=== PATIENT | male | born 1985 | race Caucasian/White ===

== ENCOUNTER → 2023-06-13 15:05 | Outpatient (CLI) | payer OTHER, SELFPAY ==
[2023-06-13 15:59] LABS: Add Manual Diff / Slide Review NO; Basophils Absolute Auto 100 /uL (0-100); Basophils Percent Auto 0.9 % (0-2); Eosinophils Absolute Auto 200 /uL (0-450); Eosinophils Percent Auto 2.3 % (2-4); Hematocrit 43.4 % (41-53); Hemoglobin 14.8 g/dL (13.5-17.5); Lymphocytes Absolute Auto 1900 /uL (1100-4500); Lymphocytes Percent Auto 28.7 % (25-40); Mean Corpuscular HGB Conc 34.1 % (30-36); Mean Corpuscular Hemoglobin 29.9 PG (26-34); Mean Corpuscular Volume 87.7 fL (80-100); Monocytes Absolute Auto 600 /uL (0-900); Monocytes Percent Auto 8.3 % (3-14); Neutrophils Absolute Auto 4000 /uL (1500-7000); Neutrophils Percent Auto 59.8 % (50-75); Platelet Count 297 X10^3/uL (150-400); Red Blood Cell Count 4.95 X10^6/uL (4.5-5.9); Red Cell Distribution Width 12.7 % (11.6-14.8); White Blood Cell Count 6.7 X10^3/uL (4.5-11.0)
[2023-06-13 16:04] LABS: HEMOLYSIS < 15 (0-50)
[2023-06-13 16:10] LABS: Alanine Aminotransferase 20 IU/L (<50); Albumin 4.6 g/dL (3.5-5.0); Albumin Globulin Ratio 1.4 (1.0-2.8); Alkaline Phosphatase 55 U/L (38-126); Aspartate Aminotransferase 24 IU/L (17-59); BUN Creatinine Ratio 15.3 (6-22); Bilirubin Total 0.6 mg/dL (0.2-1.3); Blood Urea Nitrogen 15 mg/dL (9-20); Calcium 9.4 mg/dL (8.4-10.2); Carbon Dioxide 27 mmol/L (22-32); Chloride 105 mmol/L (98-107); Estimated Glomerular Filt Rate > 60 mL/min (>60); Globulin 3.4 g/dL (1.7-4.1); Glucose 99 mg/dL (70-100); Potassium 4.2 mmol/L (3.4-5.1); Sodium 140 mmol/L (137-145); Uric Acid 8.7 mg/dL (3.5-8.5)
[2023-06-13 16:40] LABS: Thyroid Stimulating Hormone 0.875 uIU/mL (0.47-4.68)
[2023-06-13 16:56] LABS: Erythrocyte Sedimentation Rate 6 MM/HR (0-15)
[2023-06-13 17:43] LABS: High Sensitivity CRP - Cardiac 1.5 mg/L (1.0-3.0)
[2023-06-13 17:47] LABS: Rheumatoid Factor < 8.6 IU/mL (<12.0)
[2023-06-14 18:35] LABS: SS A Ro Sjogrens Antibody < 0.2 AI (0.0-0.9); SS B La Sjogrens Antibody < 0.2 AI (0.0-0.9)
[2023-06-16 18:39] LABS: ANA Screen, IFA Negative (.)
[2023-06-20 15:40] LABS: HLA B27 Positive (.)
== END ==
PROVIDERS: Referring Provider Ophthalmology; Visit Provider Ophthalmology
DX: H20.011 Primary iridocyclitis, right eye (principal)
CPT/HCPCS: 36415; 80053; 81374; 84443; 84550; 85025; 85651; 86038; 86140; 86235; 86430